=== PATIENT | male | born 1960 | race Caucasian/White ===

== ENCOUNTER → 2019-08-04 | Outpatient (CLI) | payer MEDICARE ==
[~2019-08-04] MED LIST: REGADENOSON 0.4 MG/5 ML DISP.SYRIN. IV ONE
--- NOTE | 2019-08-04 10:56 | PCVCIMAG ---
APPROVED REPORT Study performed: 08/04/2019 07:47:23 EXAM: Comprehensive 2D, Doppler, and color-flow Echocardiogram Patient Location: Echo lab Room #: 2Status: routine BSA: 2.04 HR: 56 bpmBP: 108/60 mmHg Rhythm: NSR Other Information Study Quality: Adequate Risk Factors: Cardiac Risk Factors: HTN, Hyperlipidemia,Cor Ca+>400, LARON Indications Abnormal ECG Dyspnea Chest Pain Hypertension/HDD 2D Dimensions IVSd: 10.28 (7-11mm)LVOT Diam: 22.92 (18-24mm) LVDd: 53.72 mm PWd: 9.68 (7-11mm)Ascending Ao: 32.37 (22-36mm) LVDs: 40.33 (25-40mm) Left Atrium: 43.11 (27-40mm) Aortic Root: 28.43 mm LV Single Plane 4CH: 43.40 % LV Single Plane 2CH: 47.55 % Biplane EF: 46.6 % Volumes Left Atrial Volume (Systole) Single Plane 4CH: 65.97 mLSingle Plane 2CH: 26.54 mL Biplane LA Volume: 45.00 mLLA ESV Index: 21.00 mL/m2 Aortic Valve AoV Peak Familia.: 1.18 m/s AO Peak Gr.: 5.60 mmHgLVOT Max P.70 mmHg LVOT Max V: 0.79 m/s KEVIN Vmax: 2.77 cm2 Mitral Valve E/A Ratio: 0.6 MV Decel. Time: 207.76 ms MV E Max Familia.: 0.48 m/s MV A Familia.: 0.76 m/s IVRT: 114.19 ms TDI E/Lateral E': 6.00E/Medial E': 6.86 Medial E' Familia.: 0.07 m/s Lateral E' Familia.: 0.08 m/s Pulmonary Valve PV Peak Familia.: 1.03 m/sPV Peak Gr.: 4.20 mmHg Pulmonary Vein P Vein S: 0.48 m/sP Vein A: 0.22 m/s P Vein D: 0.36 m/sP Vein A Dur.: 114.2 msec P Vein S/D Ratio: 1.33 Tricuspid Valve TR Peak Familia.: 2.42 m/s TR Peak Gr.: 23.51 mmHg TV Vmax: 0.51 m/sPA Pressure: 31.00 mmHg Left Ventricle The left ventricle is normal size. There is global hypokinesis of the left ventricle. Distal inferoseptal hypokinesis There is normal left ventricular wall thickness. Left ventricular systolic function is mildly decreased. LVEF is 45-50%. Grade I - abnormal relaxation pattern. Right Ventricle The right ventricle is normal size. The right ventricular systolic function is normal. Atria The left atrium size is normal. The right atrium size is normal. Aortic Valve Aortic valve is trileaflet. No aortic regurgitation is present. There is no aortic valvular stenosis. Mitral Valve The mitral valve is normal in structure. Trace mitral regurgitation. No evidence of mitral valve stenosis. Tricuspid Valve The tricuspid valve is normal in structure. Trace to mild tricuspid regurgitation with a PA pressure of 31 mmHg. Mild pulmonary hypertension. Pulmonic Valve The pulmonary valve is normal in structure. There is no pulmonic valvular regurgitation. Great Vessels The aortic root is normal in size. The ascending aorta is normal in size. Aortic arch is normal in caliber. IVC is normal in size and collapses >50% with inspiration. Pericardium There is no pericardial effusion. There is no pleural effusion. <Conclusion> The left ventricle is normal size. There is global hypokinesis of the left ventricle. Distal inferoseptal hypokinesis Left ventricular systolic function is mildly decreased. LVEF is 45-50%. Grade I - abnormal relaxation pattern. The right ventricle is normal size. The left atrium size is normal. Aortic valve is trileaflet. Trace mitral regurgitation. The tricuspid valve is normal in structure. The aortic root is normal in size. There is no pericardial effusion.
--- NOTE | 2019-08-04 16:45 | PCVCIMAG ---
APPROVED REPORT Imaging Protocol: Rest Tc-99m/Stress Tc-99m 1 day Study performed: 08/04/2019 09:08:26 Indication: Chest Pain, Dyspnea, Calcium Score Patient Location: Out-Patient Stress Nurse: Shayna Lee RN, Evelin Durant RN [place] Tech:Abebe MatiasBERNARD burrowsMT Ht: 5 ft 8 in Wt: 200 lbs BSA: 2.04 m2 HR: 57 bpm BP: 147/82 mmHg BMI: 30.4 Rhythm: Sinus Bradycardia Medical History Medical History: Age, Hyperlipidemia, HTN Medications: Atorvastatin Allergies: Many - none related to Testing Pretest Chest Pain Characteristics: No chest pain Exercise History: Indeterminate Resting Data Rest SPECT myocardial perfusion imaging was performed in supine position 45 minutes following the intravenous injection of 10.2 mCi of Tc-99m Sestamibi. Time of rest injection: 829 Date: 08/04/2019 Administration Route: IV Administration Site: Right AC Pharmacologic Stress Pharmacologic stress test was performed by injecting Regadenoson 0.4 mg IV push over 10-15 seconds immediately followed by the intravenous injection of 31.9 mCi of Tc-99m Sestamibi. Time of stress injection: 944 Date: 08/04/2019 Administration Route: IV Administration Site: Right AC Gated Stress SPECT was performed 45 minutes after stress injection. The images were gated to evaluate regional wall motion and calculate left ventricular ejection fraction. Stress Test Details Stress Test: Pharmacologic stress testing performed using 0.4 mg of regadenoson per 5 mL given IV over 10 seconds. Reason for pharmacologic stress test: hip issues. HRMax Heart Rate (APMHR): 163 bpm Resting HR: 57 bpmTarget HR (85% APMHR): 138 bpm Max HR Achieved: 76 bpm % of APMHR: 46 Recovery HR: 71 bpm BP Resting BP: 147/80 mmHg Max BP: 124/63 mmHg Recovery BP: 128/74 mmHg ECG Resting ECG: Sinus Bradycardia Stress ECG: Sinus Rhythm Arrhythmia: VPC's Recovery ECG: Sinus Rhythm Clinical Reason for Termination: Completed protocol Stress Symptoms: Abdominal Discomfort Exercise duration: min 55 sec Symptoms resolved with caffeine. Stress ECG Conclusion ECG: Non-ischemic Study Quality Study: Good Study Data Post stress, the left ventricular ejection was 56%.. SSS: 3 SRS: 0 SDS: 3 TID = 0.81. Perfusion No evidence of stress induced ischemia or prior myocardial infarction. Wall Motion Normal left ventricular size and function with no regional wall motion abnormalities. Nuclear Conclusion No evidence of stress induced ischemia or prior myocardial infarction. Normal left ventricular size and function with no regional wall motion abnormalities. Post stress, the left ventricular ejection was 56%. No prior study available for comparison. Interpreted by: Benjamin Pierson MD Electronically Approved: 08/04/2019 11:48:28 <Conclusion> ECG: Non-ischemic
== END | disposition home or self-care (01) ==
LOC: PCVCIMAG 07:42
PROVIDERS: ATTEND Internal Medicine Cardiovascular Disease
DX: I07.1 Rheumatic tricuspid insufficiency (principal); I10 Essential (primary) hypertension; I27.20 Pulmonary hypertension, unspecified; Z88.1 Allergy status to other antibiotic agents
CPT/HCPCS: 78452; 93017; 93306; A9500; J2785